=== PATIENT | female | born 1965 | race Two or more races ===

== ENCOUNTER 2018-06-16 11:10 | Emergency (ER) | payer OTHER ==
[~2018-06-16] VITALS: Ht 160 cm; Wt 51.7 kg
[2018-06-16] MEDS ORDERED: ZESTRIL10 MG (11:34)
[2018-06-16] MEDS ORDERED: PERCOCET 5-3251 EACH PO (13:30)
== END 2018-06-16 13:49 | disposition home or self-care (01) ==
LOC: EMR PED 11:10 → ER 11:10 → EMR PED 11:56 → ER 11:56
DX: G89.3 Neoplasm related pain (acute) (chronic) (principal); Z85.89 Personal history of malignant neoplasm of other organs and systems

== ENCOUNTER 2018-07-30 05:55 | Day surgery (SDC) | payer OTHER ==
[~2018-07-30 05:55] MED LIST: ALPRAZOLAM ODT0.5 MG PO; PANTOPRAZOLE SO40 MG PO; PERCOCET 5-3251 EACH PO; PRIMLEV PO; TRAMADOL PO; ZESTRIL10 MG
== END 2018-07-30 11:05 | disposition home or self-care (01) ==
LOC: CIR.AMB 05:55
DX: C20 Malignant neoplasm of rectum (principal)
CPT/HCPCS: 36561; C1751

== ENCOUNTER 2019-03-30 06:11 | Day surgery (SDC) | payer OTHER ==
[~2019-03-30 06:11] MED LIST changes: +XARELTO20 MG PO
== END 2019-03-30 14:10 | disposition home or self-care (01) ==
LOC: CIR.AMB 06:11
DX: C20 Malignant neoplasm of rectum (principal); C19 Malignant neoplasm of rectosigmoid junction
CPT/HCPCS: 36561; C1751